=== PATIENT | male | born 1950 | race Caucasian/White ===

== ENCOUNTER → 2020-06-30 08:24 | Outpatient (CLI) | payer OTHER, SELFPAY ==
--- NOTE | ~2020-06-30 | XR_ITS ---
EXAMINATION: XR knee LT 3V DATE: 06/30/2020 08:46 INDICATION: Primary osteoarthritis of the left knee TECHNIQUE: Three views of the left knee were obtained. COMPARISON: None. FINDINGS: Alignment is normal. No fracture or osteochondral lesion. There is mild tricompartmental os teoarthritis characterized by tiny marginal osteophytes. There is chondrocalcinosis of menisci. A mod erate-sized joint effusion is present. Soft tissues are unremarkable. IMPRESSION: 1. Moderate size joint effusion. 2. Tricompartmental osteoarthritis. 3. Chondrocalcinosis of the menisci. Reviewed, dictated and finalized at location A. [employer] ADMINISTRATOR
== END ==
PROVIDERS: PCP Internal Medicine; Visit Provider Internal Medicine
DX: M17.12 Unilateral primary osteoarthritis, left knee (principal); M25.462 Effusion, left knee
CPT/HCPCS: 73562

== ENCOUNTER → 2021-01-03 09:36 | Outpatient (CLI) | payer OTHER, SELFPAY ==
--- NOTE | ~2021-01-03 | CT_ITS ---
EXAMINATION: CT abdomen pelvis w con INDICATION: Left-sided and left lower quadrant pain TECHNIQUE: Computed tomographic images of the abdomen and pelvis were obtained after the administrati on of 100 cc of Omnipaque 350 intravenous contrast. The dose-length product (DLP) was 657.30 mGy-cm. Automated exposure control and iterative reconstruction technique were employed. COMPARISON: None available FINDINGS: Minimal dependent atelectasis is present in the lung bases. The heart size is normal. There are multiple cysts of the liver, the largest of which measures 11 mm in the right hepatic lobe. The spleen, pancreas, gallbladder, and adrenal glands are normal. The kidneys are unremarkable. There is calcified atherosclerosis of the aorta and many of the other arteries. No pathologically enlarged abd ominal or pelvic lymph nodes are identified. There is no free intraperitoneal gas or evidence of alma l obstruction. Colonic diverticulosis is present without evidence of diverticulitis. There is severe lumbar spondylosis. IMPRESSION: 1. No CT correlate for the patient's symptoms. 2. Severe lumbar spondylosis. Reviewed, dictated and finalized at location A.
[2021-01-03 09:53] LABS: Estimated Glomerular Filt Rate 50
== END ==
PROVIDERS: PCP Internal Medicine; Visit Provider Internal Medicine
DX: R10.32 Left lower quadrant pain (principal); M47.896 Other spondylosis, lumbar region
CPT/HCPCS: 74177; Q9967

== ENCOUNTER → 2022-01-09 12:39 | Outpatient (CLI) | payer OTHER, SELFPAY ==
--- NOTE | ~2022-01-09 | CT_ITS ---
EXAMINATION: CT lung screening DATE: 01/09/2022 12:52 INDICATION: Personal history of tobacco dependence. Lung cancer screening. TECHNIQUE: Computed tomography (CT) of the chest was performed without intravenous contrast. The dose -length product was 98.10 mGy-cm. Automated exposure control and iterative reconstruction technique w ere employed. COMPARISON: None FINDINGS: There is ectasia and atherosclerosis of the ascending thoracic aorta measuring up to 4.4 cm . There is atherosclerosis of the coronary arteries. Heart size normal. There are small subcentimeter hypodensities throughout the liver which are nonspecific. The spleen, pancreas, adrenal glands and v isualized aspects of the kidneys are unremarkable. Gallbladder is present. No significant pleural or pericardial effusion. No thoracic lymphadenopathy. No focal airspace consolidation. No endobronchial lesions. Calcified granuloma left lung base. Moderate thoracic spondylosis. IMPRESSION: 1. Lung-RADS category 1: Negative. Continue annual screening with noncontrast low-dose chest CT in 12 months. 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 Reviewed, dictated and finalized at location A. IMPRESSION: 1. Lung-RADS category 1: Negative. Continue annual screening with noncontrast l ow-dose chest CT in 12 months. 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
== END ==
PROVIDERS: PCP Internal Medicine; Visit Provider Internal Medicine
DX: Z12.2 Encounter for screening for malignant neoplasm of respiratory organs (principal); F17.210 Nicotine dependence, cigarettes, uncomplicated; I70.0 Atherosclerosis of aorta
CPT/HCPCS: 71271

== ENCOUNTER 2023-01-09 08:55 | Outpatient (CLI) | payer OTHER, SELFPAY ==
--- NOTE | ~2023-01-09 | CT_ITS ---
CT of the Abdomen and Pelvis: Indication: Liver mass Technique: 2.5 mm axial scans were obtained through the abdomen and pelvis following intravenous adm inistration of 100 cc of Omnipaque 350. Dose reduction technique was used on this scan by utilizing a utomated exposure control and iterative reconstruction technique. The dose-length product (DLP) was 4 46.89 mGy-cm. COMPARISON: 01/03/2021 Findings: Scans through the lung bases are unremarkable. Scattered small hepatic cysts are stable from prior exam. The spleen, pancreas, gallbladder, adrenals and kidneys are within normal limits. There are atherosclerotic calcifications of the aorta. No lym phadenopathy. No bowel obstruction or bowel wall thickening. There is no evidence to suggest acute appendicitis. Images through the pelvis were performed. Urinary bladder unremarkable. Prostate gland and seminal ve sicles are unremarkable. No ascites. Degenerative spondylosis of the lumbar spine noted. Impression: Multiple small hepatic cysts, essentially stable from prior exam. Reviewed, dictated and finalized at location . Impression: Multiple small hepatic cysts, essentially stable from prior exam.
--- NOTE | ~2023-01-09 | CT_ITS ---
CT Scan of the Chest without Contrast: Clinical Indication: Lung cancer screening, smoking history Technique: Contiguous sections were acquired throughout the chest without intravenous contrast. Dose reduction technique was used on this scan by utilizing automated exposure control and iterative recon struction technique. The dose-length product (DLP) was 116.82 mGy-cm. COMPARISON: 01/09/2022 Findings: There is no evidence of any significant mediastinal, hilar or axillary lymphadenopathy. Ascending aor ta is dilated to 4.4 cm. There is no evidence of pleural or pericardial effusion. The lungs are clear. No pulmonary nodules or infiltrates are noted. Images through the upper abdomen reveal no abnormalities. Impression: Lung RADS 1: Negative. 12 month follow-up screening CT advised. Stable dilatation of the ascending aorta to 4.4 cm. Reviewed, dictated and finalized at [facility]. Impression: Lung RADS 1: Negative. 12 month follow-up screening CT advised. Stable dilatation of the ascending aorta to 4.4 cm.
[2023-01-09 09:42] LABS: Estimated Glomerular Filt Rate > 60
== END 2023-01-09 08:56 | disposition home or self-care (01) ==
PROVIDERS: PCP Internal Medicine; Visit Provider Internal Medicine
DX: K76.89 Other specified diseases of liver (principal); R16.0 Hepatomegaly, not elsewhere classified; F17.211 Nicotine dependence, cigarettes, in remission
CPT/HCPCS: 71271; 74177; Q9967

== ENCOUNTER 2023-12-11 16:11 | Outpatient (CLI) | payer OTHER, SELFPAY ==
--- NOTE | ~2023-12-11 | XR_ITS ---
XR ankle LT 2V, XR foot LT 2V 12/11/2023 16:24 Indication: Left ankle and foot pain Procedure: 2 views left ankle and 2 views left foot Comparison: No prior studies for comparison. Findings: There is polyarticular osteoarthritis, most advanced at the talonavicular and first metatar sophalangeal joint. Lisfranc joint intact. Ankle mortise intact. There are degenerative calcaneal ent hesophytes. No acute fracture or traumatic malalignment. Impression: 1: Polyarticular osteoarthritis, advanced at the talonavicular and first MTP joints. Reviewed, dictated and finalized at location B. Impression: 1: Polyarticular osteoarthritis, advanced at the talonavicular and first MTP hayder ints. Impression: 1: Polyarticular osteoarthritis, advanced at the talonavicular and first MTP hayder ints.
== END 2023-12-11 16:12 ==
PROVIDERS: PCP Internal Medicine; Visit Provider Internal Medicine
DX: M19.072 Primary osteoarthritis, left ankle and foot (principal)
CPT/HCPCS: 73600; 73620

== ENCOUNTER 2024-01-12 10:58 | Outpatient (CLI) | payer OTHER, SELFPAY ==
--- NOTE | ~2024-01-12 | XR_ITS ---
Clinical Indication: Cough PA and lateral views of the chest: Comparison: None Findings: There is focal airspace disease or nodule at the peripheral left lung base. Right lung shivam r. Cardiomediastinal silhouette is within normal limits. Bones and soft tissues are unremarkable. Impression: Focal pneumonia versus nodule at the peripheral left lung base. Consider CT scan or short-term follow -up chest x-ray after interval therapy for pneumonia to exclude nodule. Reviewed, dictated and finalized at location . Impression: Focal pneumonia versus nodule at the peripheral left lung base. Consider CT sca n or short-term follow-up chest x-ray after interval therapy for pneumonia to e xclude nodule.
== END 2024-01-12 10:59 | disposition home or self-care (01) ==
LOC: MICIMG 10:59
PROVIDERS: PCP Internal Medicine; Visit Provider Internal Medicine
DX: R91.8 Other nonspecific abnormal finding of lung field (principal)
CPT/HCPCS: 71046

== ENCOUNTER 2024-01-16 12:57 | Outpatient (CLI) | payer OTHER, SELFPAY ==
--- NOTE | ~2024-01-16 | XR_ITS ---
XR chest 2V 01/16/2024 13:11 Indication: Acute cough. Procedure: 2 view chest Comparison: 01/12/2024 Findings: Heart size normal. Wedge-shaped density left lower thorax peripherally. Heart size normal. Right lung clear. No pleural effusion, edema or pneumothorax. Impression: 1: Wedge-shaped density left lower thorax unchanged from prior study. Recommend correlation with CT c hest for further assessment. Reviewed, dictated and finalized at location B. Impression: 1: Wedge-shaped density left lower thorax unchanged from prior study. Recommend correlation with CT chest for further assessment.
== END 2024-01-16 12:58 | disposition home or self-care (01) ==
LOC: MICIMG 12:58
PROVIDERS: PCP Internal Medicine; Visit Provider Internal Medicine
DX: R05.1 Acute cough (principal); R06.02 Shortness of breath
CPT/HCPCS: 71046

== ENCOUNTER 2024-01-23 12:22 | Outpatient (CLI) | payer OTHER, SELFPAY ==
--- NOTE | ~2024-01-23 | CT_ITS ---
EXAMINATION:CT diagnostic chest w con DATE: 01/23/2024 13:15 INDICATION: Pneumonia. TECHNIQUE: Computed tomography (CT) of the chest was performed with 75 mL Omnipaque 350 intravenous c ontrast. Automated exposure control and iterative reconstruction technique were employed. The dose-le ngth product (DLP) was 262.19 mGy-cm. COMPARISON: Chest CT 01/09/2023 FINDINGS: There are tree-in-bud opacities, centrilobular nodules, and small airspace opacities in lef t upper lobe and left lower lobe, consistent with pneumonia. No pleural effusion. The heart size is n ormal. There are coronary artery calcifications. No pericardial effusion. There is a small sliding hi atal hernia. There are cysts in the liver measuring up to 12 mm. There is severe thoracic spondylosis . There is mild chronic anterior wedging of multiple vertebral bodies. IMPRESSION: 1. Pneumonia in left upper lobe and left lower lobe. 2. Small sliding hiatal hernia. Reviewed, dictated and finalized at location A.
[2024-01-23 12:45] LABS: Estimated Glomerular Filt Rate 54
== END 2024-01-23 12:23 | disposition home or self-care (01) ==
LOC: MICIMG 12:23
PROVIDERS: PCP Internal Medicine; Visit Provider Internal Medicine
DX: J18.9 Pneumonia, unspecified organism (principal); K44.9 Diaphragmatic hernia without obstruction or gangrene
CPT/HCPCS: 71260; Q9967

== ENCOUNTER 2024-03-04 12:07 | Outpatient (CLI) | payer OTHER, SELFPAY ==
--- NOTE | ~2024-03-04 | XR_ITS ---
Clinical Indication: Pneumonia PA and lateral views of the chest: Comparison: 01/16/2024 Findings: The lungs are clear, without evidence of focal consolidation or pleural effusion. Cardiome diastinal silhouette is within normal limits. Bones and soft tissues are unremarkable. Impression: Normal chest. Reviewed, dictated and finalized at location . 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
== END 2024-03-04 12:08 | disposition home or self-care (01) ==
DX: J18.9 Pneumonia, unspecified organism (principal)
CPT/HCPCS: 71046

== ENCOUNTER 2025-03-31 09:41 | Outpatient (CLI) | payer OTHER, SELFPAY ==
--- NOTE | ~2025-03-31 | CT_ITS ---
EXAMINATION:CT lung screening DATE: 03/31/2025 09:55 INDICATION: Screening TECHNIQUE: Computed tomography (CT) of the chest was performed without intravenous contrast. The dose-length product (DLP) was 88.60 mGy-cm. COMPARISON: 01/23/2024 FINDINGS: No new nodules or masses. Left upper lobe consolidation on the previous exam is completely resolved except for probable mild residual fibrotic changes. Lung tenorio are otherwise clear. Heart size normal. No significant pericardial effusion or bulky lymphadenopathy. Coronary artery calcification. 4.3 cm mild aneurysmal dilatation of the ascending thoracic aorta slightly larger by measurement compared to the previous study. Diffuse degenerative changes throughout the bones. No acute process seen in the visualized portions of the upper abdomen fracture thoracic soft tissues. IMPRESSION: 1. Interval resolution of left upper lobe infiltrate. No suspicious lung nodules or masses. 2. Mild aneurysmal dilatation of the ascending thoracic aorta slightly increased in size. 3. Other findings as above. 4. Lung RADS 2. Correlate with follow-up low-dose lung cancer screening chest CT in 12 months. Reviewed, dictated and finalized at location A. 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 Interval resolution of left upper lobe infiltrate. No suspicious lung nodule s or masses. 2. Mild aneurysmal dilatation of the ascending thoracic aorta slightly increase d in size. 3. Other findings as above. 4. Lung RADS 2. Correlate with follow-up low-dose lung cancer screening chest C T in 12 months.
== END 2025-03-31 09:42 | disposition home or self-care (01) ==
LOC: MICIMG 09:41
PROVIDERS: PCP Internal Medicine; Visit Provider Internal Medicine
DX: Z12.2 Encounter for screening for malignant neoplasm of respiratory organs (principal); F17.211 Nicotine dependence, cigarettes, in remission
CPT/HCPCS: 71271